=== PATIENT | male | born 1935 | race Caucasian/White ===

== ENCOUNTER → 2016-07-25 | Outpatient (CLI) | payer BC ==
[~2016-07-25] MED LIST: ASPI81TA28 PO; CHOL2000 PO; CZR50 PO; DOCU100C31 PO; DUTA0.5C PO; FLNIN/ NAE; FRRS300 PO; GLIM2TAB2 PO; ISOS60TA25 PO; MULT-351 PO; NADO80TA PO; NITR0.4S76 SL; NTRAR SL; RANO500T PO; SENNTAB23 PO; SIMV80TA2 PO; URX/10 PO; ZCR80 PO
[2016-07-25 08:38] LABS: URINE APPEARANCE CLEAR (CLEAR); URINE BILIRUBIN NEG (NEG); URINE COLOR YELLOW; URINE EPITHELIAL CELL AUTO >30 /lpf (0-5); URINE NITRITE NEG (NEG); URINE SPECIFIC GRAVITY 1.017 (1.000-1.030); UROBILINOGEN NEG (NEG)
[2016-07-25 08:42] LABS: MANUAL MICROSCOPIC REQUIRED? NO; REVIEW REQ? YES
[2016-07-25 08:50] LABS: URINE PROTIEN/CREAT RATIO 0.5 (0-0.2); URINE TOTAL PROTEIN 71.9 mg/dl (0-11.9)
[2016-07-25 08:56] LABS: BLOOD UREA NITROGEN 32 mg/dl (7-18); BUN/CREATININE RATIO 15.2 (10-20); CALCIUM 9.1 mg/dl (8.5-10.1); CARBON DIOXIDE 25 mmol/L (21-32); CHLORIDE 108 mmol/L (98-107); GLUCOSE 147 mg/dl (70-99); POTASSIUM 4.4 mmol/L (3.5-5.1); SODIUM 142 mmol/L (136-145)
[2016-07-25 09:01] LABS: FERRITIN 287.3 ng/ml (8.0-388.0); PHOSPHORUS 2.9 mg/dl (2.5-4.9); TOTAL IRON BINDING CAPACITY 211 mcg/dl (250-450)
[2016-07-25 10:39] LABS: URINE PATH CASTS 0-3 GRANULAR CASTS /lpf (0)
== END | disposition home or self-care (01) ==
LOC: C.LABSPEC 12:35
PROVIDERS: ATTEND Internal Medicine Nephrology
DX: N18.3 Chronic kidney disease, stage 3 (moderate) (principal); D64.9 Anemia, unspecified; D63.1 Anemia in chronic kidney disease; N18.9 Chronic kidney disease, unspecified

== ENCOUNTER → 2016-08-23 | Outpatient (CLI) | payer BC ==
[2016-08-23 10:00] LABS: BLOOD UREA NITROGEN 38 mg/dl (7-18); BUN/CREATININE RATIO 17.5 (10-20); CALCIUM 8.8 mg/dl (8.5-10.1); CARBON DIOXIDE 26 mmol/L (21-32); CHLORIDE 107 mmol/L (98-107); GLUCOSE 213 mg/dl (70-99); POTASSIUM 4.2 mmol/L (3.5-5.1); SODIUM 141 mmol/L (136-145)
== END | disposition home or self-care (01) ==
LOC: C.LAB 09:10
PROVIDERS: ATTEND Internal Medicine Nephrology
DX: N17.9 Acute kidney failure, unspecified (principal)

== ENCOUNTER → 2016-10-17 | Outpatient (CLI) | payer BC ==
[2016-10-17 09:29] LABS: URINE PROTIEN/CREAT RATIO 0.4 (0-0.2); URINE TOTAL PROTEIN 58.9 mg/dl (0-11.9)
[2016-10-17 09:33] LABS: MANUAL MICROSCOPIC REQUIRED? NO; REVIEW REQ? YES; URINE APPEARANCE CLEAR (CLEAR); URINE BILIRUBIN NEG (NEG); URINE COLOR DK YELLOW; URINE NITRITE NEG (NEG); URINE SPECIFIC GRAVITY 1.021 (1.000-1.030); UROBILINOGEN NEG (NEG)
[2016-10-17 09:53] LABS: URINE EPITHELIAL CELL AUTO 0-5 /lpf (0-5)
[2016-10-17 09:54] LABS: URINE PATH CASTS 0-3 GRANULAR CASTS /lpf (0)
== END | disposition home or self-care (01) ==
LOC: C.LAB 12:17
PROVIDERS: ATTEND Internal Medicine Nephrology
DX: N18.3 Chronic kidney disease, stage 3 (moderate) (principal); D63.1 Anemia in chronic kidney disease

== ENCOUNTER → 2016-10-27 | Outpatient (CLI) | payer BC ==
[~2016-10-27] MED LIST changes: +FEXO1TAB49 PO; +NITR0.1S SL; -NITR0.4S76 SL
--- NOTE | 2016-10-27 13:40 | DIAGNOSTIC IMAGING REPORT ---
BILATERAL LOWER EXTREMITY VENOUS DOPPLER CLINICAL HISTORY: Feet discoloration. Nonhealing wound. COMPARISON STUDY: Bilateral lower extremity venous Doppler February 28, 2015. TECHNIQUE: Sonography of the deep venous system of the bilateral lower extremities was performed. Compression and augmentation were evaluated. FINDINGS: The bilateral common femoral, superficial femoral and popliteal veins were compressible. Augmentation was normal. Flow was shown within the deep calf vessels. IMPRESSION: No evidence of deep venous thrombus within the bilateral lower extremities. Electronically signed by: David Wright M.D. 10/27/2016 1:37 PM Dictated Date/Time: 10/27/2016 1:37 PM
--- NOTE | 2016-10-27 14:17 | DIAGNOSTIC IMAGING REPORT ---
BILATERAL LOWER EXTREMITY ARTERIAL DOPPLER ULTRASOUND CLINICAL HISTORY: Type 2 diabetes. Discoloration of feet. COMPARISON STUDY: No previous studies for comparison. TECHNIQUE: Bilateral ankle to brachial indices were obtained. Grayscale and color and duplex Doppler sonography of the arterial systems of each lower extremity was performed. FINDINGS: The right right ankle to brachial index measured 1.43 when using posterior tibial artery and 1.46 when using the dorsalis pedis. The left ankle to brachial index measured 1.13 when using posterior tibial artery and 1.27 when using the dorsalis pedis. These are likely artificially elevated due to vessel calcification and lower extremity edema. This exam is compromised by suboptimal penetration due to lower extremity edema. No elevated velocities were identified within the right lower extremity. There is reversal flow within the right anterior tibial artery. There was biphasic and triphasic flow throughout the right lower extremity. There was triphasic flow within the left common femoral and superficial femoral arteries. An elevated peak systolic velocity of 159 cm/s was noted within the mid left superficial femoral artery. No flow is identified within the mid aspect of the left anterior tibial artery. There is reversal flow within the distal left anterior tibial artery. There was monophasic flow within the left dorsalis previous, peroneal and posterior tibial arteries. IMPRESSION: 1. Moderate atherosclerotic plaque within each lower extremity. 2. Normal to elevated ankle to brachial indices. These are likely artificially elevated due to vessel calcification and lower extremity edema. 3. Possible hemodynamically significant stenosis within the mid left superficial femoral artery. 4. Suspected occlusion of the mid aspects of the bilateral anterior tibial arteries. Otherwise, patent vessels within each lower extremity. Electronically signed by: David Wright M.D. 10/27/2016 2:15 PM Dictated Date/Time: 10/27/2016 2:11 PM
--- NOTE | 2016-11-27 11:25 | CODING QUERY MEDICAL NECESSITY ---
SUPPORTING DIAGNOSIS NEEDED Ben GUEVARA, A supporting diagnosis is required for the test/procedure performed on this patient in order for us to be reimbursed by the patient's insurance. Please provide a supporting diagnosis for the following test/procedure listed below next to the test name along with your signature. *If there is no additional diagnosis for this patient that would support the following test/procedure please document that below next to the test/procedure. Test(s)/Procedure(s) that require a supporting diagnosis: * ([id number]) VENOUS DOPPLER LOWER EXT BILAT DIAGNOSIS: DATE OF SERVICE: 10/27/16 Provider Signature: Date: Thank you Sammy Barrera [facility] Information Management Once completed, please kindly fax back to [phone] For questions please call [phone]
== END | disposition home or self-care (01) ==
LOC: C.ULTR 11:33
PROVIDERS: ATTEND Nurse Practitioner
DX: E11.9 Type 2 diabetes mellitus without complications (principal); L81.9 Disorder of pigmentation, unspecified; I70.203 Unspecified atherosclerosis of native arteries of extremities, bilateral legs; T14.8 Other injury of unspecified body region; X58.XXXA Exposure to other specified factors, initial encounter

== ENCOUNTER → 2016-11-16 | Outpatient (CLI) | payer BC ==
--- NOTE | 2016-11-16 14:54 | DIAGNOSTIC IMAGING REPORT ---
TWO VIEW CHEST CLINICAL HISTORY: Cough. FINDINGS: PA and lateral chest radiographs are compared to study dated 03/04/2015. The patient is status post midline sternotomy. The heart is enlarged and there is atherosclerotic calcification of the thoracic aorta. The pulmonary vasculature is noncongested. Emphysema and chronic interstitial thickening are similar to previous. Patchy airspace opacities are identified in the left mid to lower lung. No pleural effusion or pneumothorax is seen. The skeletal structures are osteopenic. 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 IMPRESSION: 1. Cardiomegaly and emphysema. 2. There are patchy airspace opacities in the left mid to lower lung. Correlate clinically for evidence of an infectious/inflammatory pneumonitis. Radiographic follow-up to resolution is recommended. Electronically signed by: Randy Manley M.D. 11/16/2016 2:53 PM Dictated Date/Time: 11/16/2016 2:51 PM
== END | disposition home or self-care (01) ==
LOC: C.RADPV 14:33
PROVIDERS: ATTEND Nurse Practitioner
DX: R05 Cough (principal); I51.7 Cardiomegaly; J43.9 Emphysema, unspecified; R91.8 Other nonspecific abnormal finding of lung field

== ENCOUNTER → 2016-11-17 | Outpatient (CLI) | payer BC ==
[2016-11-17 13:01] LABS: ESTIMATED AVERAGE GLUCOSE 108 mg/dl; HA1C FLAG Normal (Normal)
== END | disposition home or self-care (01) ==
LOC: C.LABPVFM 10:40
PROVIDERS: ATTEND Nurse Practitioner
DX: E11.9 Type 2 diabetes mellitus without complications (principal)

== ENCOUNTER → 2016-11-22 | Outpatient (CLI) | payer BC ==
--- NOTE | 2016-11-22 11:34 | DIAGNOSTIC IMAGING REPORT ---
CT OF THE CHEST WITHOUT IV CONTRAST CLINICAL HISTORY: Persistent cough COMPARISON STUDY: Chest x-ray dated 11/16/2016 CT DOSE: 394.42 mGycm TECHNIQUE: CT of the thorax was performed from the thoracic inlet to the lung bases. Images are reviewed in the axial, sagittal, and coronal planes. IV contrast was not administered for this examination. FINDINGS: Thyroid: There is 7 mm right lobe thyroid nodule Thoracic aorta: The thoracic aorta is normal in course and caliber, noting standard 3 vessel arch anatomy. Heart: There are coronary artery calcifications present. Lungs and pleural spaces: There is subpleural interstitial thickening/edema. There are bilateral mixed interstitial and groundglass opacities within both upper lobes. There is a 4.2 solid left upper lobe pulmonary nodule as visualized in image #127/296. There is an 8 x 5 mm solid nodule along the left major fissure as visualized in image #164/296. There is a 3 mm right middle lobe perifissural solid nodule as visualized in image #168/296. There is a 3 mm solid right apical pulmonary nodule as visualized in image #41/296. There are few scattered calcified granulomas present. Mediastinum: There is are mildly prominent mediastinal lymph nodes the largest of which is a right paratracheal lymph node measuring 15 x 10 mm. Evette: There is no evidence of pathologic hilar adenopathy given the limitations of a noncontrast study. Axilla: Clear. Upper abdomen: Partially visualized upper abdominal viscera is within normal limits. Skeletal structures: There is ankylosis of the dorsal spine. IMPRESSION: 1. Scattered bilateral solid subcentimeter pulmonary nodules. An optional 12 month follow-up is recommended. 2. Borderline enlarged mediastinal lymph nodes 3. Subpleural interstitial thickening/edema. Mixed interstitial and groundglass opacities within both upper lobes. It is unclear if these findings are acute or chronic. A three-month follow-up CT scan is recommended 4. Ankylosis of the dorsal spine. Please refer to below summary of Fleischner criteria recommendations for follow-up of incidental CT nodules (Riddhi Pleitez, Guidelines for management of small pulmonary nodules detected on CT scans: A statement from the Fleischner Society, Radiology 237: [phone].) SOLID NODULES Solitary nodule size: <6 mm * low risk patients: no follow-up needed * high risk patients: optional CT at 12 months Solitary nodule size: 6-8 mm * low risk patients: follow-up at 6-12 months, then consider further follow-up at 18-24 months * high risk patients: initial follow-up CT at 6-12 months and then at 18-24 months if no change Solitary nodule size: >8 mm * either low or high risk patients - consider follow-up CT at 3 months, and/or CT-PET, and/or biopsy Multiple nodules size: <6 mm * low risk patients: no routine follow-up * high risk patients: optional CT at 12 months Multiple nodules size: 6-8 mm * low risk patients: follow-up at 3-6 months, then consider further follow-up at 18-24 months * high risk patients: follow-up at 3-6 months, then at 18-24 months if no change Multiple nodules size: >8 mm * low risk patients: follow-up at 3-6 months, then consider further follow-up at 18-24 months * high risk patients: follow-up at 3-6 months, then at 18-24 months if no change Note: newly detected indeterminate nodule in persons 35 years of age or older. * low risk patients: minimal or absent history of smoking and/or other known risk factors * high risk patients: history of smoking or of other known risk factors (e.g. first degree relative with lung cancer, or exposure to asbestos, radon, uranium) * if a nodule up to 8 mm is partly solid or is ground glass further follow-up is required after 24 months to exclude possible slow growing adenocarcinoma (MAURIZIO) SUBSOLID NODULES Solitary pure ground-glass nodule * nodule size <6 mm - no CT follow-up required * nodule size >=6 mm - follow-up CT at 6-12 months, then every 2 years until 5 years Solitary part-solid nodule * nodule size <6 mm - no CT follow-up required * nodule size >=6 mm - follow-up CT at 3-6 months. If unchanged, and solid component remains <6 mm, then annual follow-up for 5 years Multiple subsolid nodules * nodule size <6 mm - follow-up CT at 3-6 months, consider further follow-up at 2 and 4 years if stable * nodule size >=6 mm - follow-up CT at 3-6 months, subsequent management based on the most suspicious nodule(s) Electronically signed by: Darnell Dewitt M.D. 11/22/2016 11:33 AM Dictated Date/Time: 11/22/2016 11:21 AM
== END | disposition home or self-care (01) ==
LOC: C.CTS 11:06
PROVIDERS: ATTEND Nurse Practitioner
DX: R05 Cough (principal); R93.8 Abnormal findings on diagnostic imaging of other specified body structures

== ENCOUNTER → 2016-12-05 | Outpatient (CLI) | payer BC | END | disposition home or self-care (01) | LOC: C.LABPVFM 08:56 | PROVIDERS: ATTEND Nurse Practitioner | DX: R05 Cough (principal); R93.8 Abnormal findings on diagnostic imaging of other specified body structures ==

== ENCOUNTER → 2016-12-14 | Outpatient (CLI) | payer BC | END | disposition home or self-care (01) | LOC: C.LABPVFM 14:44 | PROVIDERS: ATTEND Internal Medicine Infectious Disease | DX: R91.8 Other nonspecific abnormal finding of lung field (principal) ==

== ENCOUNTER 2016-12-24 19:08 | Emergency (ER) | payer BC ==
[~2016-12-24 19:08] MED LIST changes: -ASPI81TA28 PO; -CHOL2000 PO; -DOCU100C31 PO; -FEXO1TAB49 PO; -FLNIN/ NAE; -NITR0.1S SL; -ZCR80 PO
[2016-12-24 19:11] VITALS: Ht 190.5 cm
--- NOTE | 2016-12-24 20:13 | DIAGNOSTIC IMAGING REPORT ---
LEFT KNEE 1 OR 2 VIEWS ROUTINE, LEFT TIBIA/FIBULA 2 VIEWS ROUTINE CLINICAL HISTORY: fall, pain COMPARISON STUDY: None. FINDINGS: Mild osteoarthritis within the left knee. No knee effusion. Surgical clips are seen along the medial axis of the knee and lower leg. No fractures within the visualized osseous structures. No dislocation. Diffuse soft tissue swelling within the left knee and lower leg. IMPRESSION: Diffuse soft tissue swelling. No fractures within the left knee or left lower leg. Electronically signed by: Jose Roberto Smith M.D. 12/24/2016 8:11 PM Dictated Date/Time: 12/24/2016 8:09 PM
[2016-12-24] MEDS ORDERED: ZCR80 PO (20:25)
[2016-12-24] MEDS ORDERED: ASPI81TA28 PO (20:25)
[2016-12-24] MEDS ORDERED: CHOL2000 PO (20:25)
[2016-12-24] MEDS ORDERED: NITR0.1S SL (20:25)
[2016-12-24] MEDS ORDERED: NADO80TA PO (20:25)
[2016-12-24] MEDS ORDERED: DOCU100C31 PO (20:25)
[2016-12-24] MEDS ORDERED: FLNIN/ NAE (20:25)
--- NOTE | 2016-12-24 21:14 | EMERGENCY ROOM VISIT NOTE ---
History Report prepared by Mahnaz: Marilee Bsutamante Under the Supervision of: Dr. Randy Holloway M.D. 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 The patient currently rates the pain as a 3/10 in severity. The patient states that he was getting into the passenger side of the car and the running board was wet from the rain causing it to be slippery and he twisted his leg. The patient denies falling. The patient's family state that they had a walking boot from a previous injury and he was wearing it today because he was unable to get his shoes on. The patient states that he tried heat on the leg but it did not improve his pain. He states that with ice the pain was better. The patient denies any knee pain on the left leg. The patient's states that the patient does not take any blood thinners but does take baby aspirin 3 times a day 3 days a week. The patient denies any other injuries or pain. Source of History: patient, spouse/significant other () Onset: 6 hours SEWER PIPE LAYER Position: leg (left) Symptom Intensity: 3/10 Timing: other (persistent) Modifying Factors (Relieving): ice Note: Patient denies any left knee pain. Review of Systems See HPI for pertinent positives & negatives. A total of 6 systems reviewed and were otherwise negative. Past Medical & Surgical Surgical Problems: (1) S/P quintuple vessel bypass Family History Patient reports no known family medical history. Social History Smoking Status: Never Smoker Alcohol Use: none Drug Use: none Marital Status: Housing Status: lives with significant other Occupation Status: retired Current/Historical Medications Scheduled Aspirin (Aspirin Ec), 81 MG PO 3XWK Cholecalciferol (Vitamin D3), 2,000 INTER.UNIT PO DAILY Docusate Sodium (Docusate Sodium), 200 MG PO BID Glimepiride (Glimepiride), 2 MG PO QAM Isosorbide Mononitrate Ext Rel (Imdur Ext Rel), 60 MG PO BID Nadolol (Corgard), 80 MG PO BID Simvastatin (Simvastatin), 80 MG PO HS Scheduled PRN Fluticasone Propionate (Fluticasone Propionate), 2 SPRAYS ALAYNA DAILY PRN for Allergy Symptoms Nitroglycerin (Nitroglycerin Lingual), 1 SPRAY SL UD PRN for Chest Pain Allergies Coded Allergies: Sulfamethoxazole w/Trimethoprim (Verified Allergy, Mild, HIVES, 06/21/15) Amoxicillin (Verified Allergy, Unknown, HIVES, 06/21/15) Iodine (Verified Allergy, Unknown, HIVES, 06/21/15) Physical Exam Vital Signs Date Time Temp Pulse Resp B/P (MAP) Pulse Ox O2 Delivery O2 Flow Rate FiO2 12/24/16 22:08 36.5 70 18 126/66 95 12/24/16 21:53 70 18 126/66 95 Room Air 12/24/16 19:11 36.5 70 18 126/64 95 Room Air Physical Exam GENERAL: Sitting on stretcher, no acute distress. NEURO: Awake, alert, oriented x3, moving all extremities. EXTREMITIES: Left leg edema when compared to the right. No cellulitis. There is mild contusion to the left leg from the knee to the ankle. No focal bony discomfort about the knee, ankle or foot. No evidence for neurovascular compromise. Tender to palpation over the left posterior calf. Achilles is intact. Medical Decision & Procedures ER Provider Diagnostic Interpretation: X-ray results as stated below per interpretation by me and the radiologist: LEFT KNEE 1 OR 2 VIEWS ROUTINE, LEFT TIBIA/FIBULA 2 VIEWS ROUTINE CLINICAL HISTORY: fall, pain COMPARISON STUDY: None. FINDINGS: Mild osteoarthritis within the left knee. No knee effusion. Surgical clips are seen along the medial axis of the knee and lower leg. No fractures within the visualized osseous structures. No dislocation. Diffuse soft tissue swelling within the left knee and lower leg. IMPRESSION: Diffuse soft tissue swelling. No fractures within the left knee or left lower leg. Electronically signed by: Jose Roberto Smith M.D. 12/24/2016 8:11 PM Dictated Date/Time: 12/24/2016 8:09 PM US results as stated below per my review and radiologist interpretation: LEFT LOWER EXTREMITY VENOUS DOPPLER HISTORY: left leg swelling COMPARISON STUDY: None. FINDINGS: There is normal compressibility, flow, and augmentation within the left lower extremity deep venous system. IMPRESSION: No DVT within the left lower extremity. Electronically signed by: Jose Roberto Smith M.D. 12/24/2016 9:15 PM Dictated Date/Time: 12/24/2016 9:15 PM ED Course 1914: The patient was evaluated in room A11B. A complete history and physical exam was performed. 2137: Reevaluated the patient. Discussed results and discharge instructions: He verbalized understanding and agreement. The nursing staff will find a walking boot for the patient prior to discharge. 2158: A walking boot was placed on the patient's left foot. The patient is ready for discharge. Medical Decision The patient is a 81 year old male who presents to the ED with complaints of left leg pain. Differential diagnoses considered include muscle tear, hematoma , DVT, fracture, and cellulitis. The patient presents with an injury to his left leg and calf. He does have some edema and some faint contusion forming. There was no cellulitis. No neurovascular compromise. No evidence for compartment syndrome. The bony areas of the knee, ankle and foot were nontender. His Achilles was intact. Films of the left knee and left tib-fib were done, no fractures were seen. Left leg ultrasound does not show DVT, no mention of any large hematoma. The patient likely has torn a muscle of his calf. This has led to some bleeding in the soft tissues, he is on aspirin. The patient was reassured by his findings. He was given a walking boot to help with discomfort. Ice, elevation, orthopedic follow up were suggested. Medication Reconciliation: I attest that I have personally reviewed the patient' s current medication list. Blood Pressure Screening: Patient was found to have normal blood pressure on screening and does not require follow-up. Impression Primary Impression: Leg pain, left Additional Impression: Muscle strain of left lower leg Scribe Attestation The scribe's documentation has been prepared under my direction and personally reviewed by me in its entirety. I confirm that the note above accurately reflects all work, treatment, procedures, and medical decision making performed by me. Departure Information Dispostion Home / Self-Care Referrals Deb Contreras C.R.N.P (PCP) Forms HOME CARE DOCUMENTATION FORM, IMPORTANT VISIT INFORMATION Patient Instructions My [facility] Additional Instructions wear the boot when walking try to limit your walking keep the leg elevated to help the swelling ice for 30 minutes at a time for the next few days tylenol for pain call orthopedics for an appt--call in the am tomorrow return for fever or if worsening Problem Qualifiers
[2016-12-24 22:08] VITALS: BP 126/66; PULSE 70; TEMP 36.5; O2SAT 95
[2017-05-01] MEDS ORDERED: FEXO1TAB49 PO (11:07)
== END 2016-12-24 22:09 | disposition home or self-care (01) ==
LOC: C.EDB 19:09 → C.EDA 22:09
DX: M79.605 Pain in left leg (principal); S86.902A Unspecified injury of unspecified muscle(s) and tendon(s) at lower leg level, left leg, initial encounter; X50.1XXA Overexertion from prolonged static or awkward postures, initial encounter; Y92.89 Other specified places as the place of occurrence of the external cause; Z79.82 Long term (current) use of aspirin; Z79.899 Other long term (current) drug therapy

== ENCOUNTER → 2016-12-26 | Outpatient (CLI) | payer BC ==
[~2016-12-26] MED LIST changes: +ASPI81TA28 PO; +CHOL2000 PO; -CZR50 PO; +DOCU100C31 PO; -DUTA0.5C PO; +FEXO1TAB49 PO; +FLNIN/ NAE; -FRRS300 PO; -MULT-351 PO; +NITR0.1S SL; -NTRAR SL; -RANO500T PO; -SENNTAB23 PO; -SIMV80TA2 PO; -URX/10 PO; +ZCR80 PO
[2017-01-01 14:19] LABS: ASPERGILLUS FUMIGATUS NEGATIVE (NEGATIVE); M. FAENI (S. RECTIVIRGULA) NEGATIVE (NEGATIVE); PIGEON SERUM NEGATIVE (NEGATIVE); SACCHAROMONOSPORA VIRIDIS AB NEGATIVE (NEGATIVE); THERMOACTINOMYCES CANDIDUS NEGATIVE (NEGATIVE); THERMOACTINOMYCES VULGARIS NEGATIVE (NEGATIVE)
== END | disposition home or self-care (01) ==
LOC: C.LAB 12:53
PROVIDERS: ATTEND Physician Assistant Medical
DX: R05 Cough (principal)

== ENCOUNTER → 2017-02-21 | Outpatient (CLI) | payer BC ==
[~2017-02-21] MED LIST changes: -NITR0.1S SL; +NITR0.4S76 SL
--- NOTE | 2017-02-21 12:28 | DIAGNOSTIC IMAGING REPORT ---
CT SCAN OF THE CHEST WITHOUT IV CONTRAST CLINICAL HISTORY: Follow-up pulmonary nodules. Follow-up abnormal CT scan. Chronic cough. COMPARISON STUDY: Chest CT dated 11/22/2016. Abdominal CT dated 02/07/2015. TECHNIQUE: CT scan of the thorax was performed from the thoracic inlet to the upper abdomen. Images are reviewed in the axial, sagittal, and coronal planes. IV contrast was not administered for this examination as per the referring clinician. A dose lowering technique was utilized adhering to the principles of ALARA. CT DOSE: 476.62 mGycm FINDINGS: Thyroid: Imaged portions of the thyroid gland are normal in size and attenuation. Thoracic aorta: There is atherosclerotic calcification of the thoracic aorta, which is normal in caliber and demonstrates standard 3-vessel arch anatomy. Heart: The patient is status post midline sternotomy. The heart is enlarged and without pericardial effusion. The coronary arteries are densely calcified. The main pulmonary arteries are markedly dilated suggesting pulmonary artery hypertension. Lungs and pleural spaces: There is subpleural reticulation seen within the mid to lower lungs. There are numerous foci of interlobar septal thickening with associated groundglass change. This is most confluence in the right upper lobe and at both lung bases (right greater than left). This has increased at the lung bases in the right upper lobe as compared to 11/22/2016. Findings in the left upper lobe have significantly improved from the prior study. There are numerous tiny calcified granulomas. A 3 mm pleural-based nodule at the right apex image #51 is unchanged. Nodular pleural thickening is again seen along the left major fissure. The trachea and central airways are clear. Mediastinum: Mildly enlarged mediastinal lymph nodes are similar to previous. A high right paratracheal node measures 1.2 cm in short axis as seen on image #58. Prominent subcarinal nodes measure up to 9 mm short axis as seen on image #154. Evette: Not well assessed without IV contrast. Axillae: There is no axillary lymphadenopathy. Upper abdomen: There is a small hiatal hernia. The spleen is enlarged measuring 14.2 cm in length small splenules are incidentally noted in the left upper quadrant. Skeletal structures: The skeletal structures are osteopenic. No lytic or blastic bony lesions are seen. Degenerative change is seen throughout the thoracic spine and there is evidence of DISH. A bone island is again seen in the left scapula. IMPRESSION: 1. There are foci of groundglass consolidative change with associated intralobular septal thickening. This suggest a "crazy paving" appearance and areas of involvement have waxed and waned as compared to the 11/22/2016 examination. This caries a broad differential. Considerations include (but are not limited to) chronic/atypical pneumonias, cryptogenic organizing pneumonia, alveolar sarcoidosis, lipoid pneumonia, eosinophilic pneumonia, vasculitis/hemorrhage, drug induced pneumonitis, and alveolar proteinosis. Clinical correlation will be essential. Pulmonology follow-up is recommended. 2. Cardiomegaly with evidence of pulmonary artery hypertension. 3. Mildly enlarged mediastinal lymph nodes are similar to previous. 4. Tiny pleural-based nodules and scattered calcified granulomas are similar to previous. 5. Additional findings as above. Electronically signed by: Randy Manley M.D. 02/21/2017 12:27 PM Dictated Date/Time: 02/21/2017 11:49 AM
== END | disposition home or self-care (01) ==
LOC: C.CTS 10:14
PROVIDERS: ATTEND Physician Assistant Medical
DX: R91.8 Other nonspecific abnormal finding of lung field (principal)

== ENCOUNTER → 2017-02-23 | Outpatient (CLI) | payer BC | END | disposition home or self-care (01) | LOC: C.LAB1850 10:20 | PROVIDERS: ATTEND Physician Assistant Medical | DX: J02.9 Acute pharyngitis, unspecified (principal) ==

== ENCOUNTER → 2017-04-03 | Outpatient (CLI) | payer BC ==
[2017-04-03 09:09] LABS: URINE APPEARANCE CLOUDY (CLEAR); URINE BILIRUBIN NEG (NEG); URINE COLOR DK YELLOW; URINE EPITHELIAL CELL AUTO >30 /lpf (0-5); URINE NITRITE NEG (NEG); URINE SPECIFIC GRAVITY 1.024 (1.000-1.030); UROBILINOGEN NEG (NEG)
[2017-04-03 09:12] LABS: MANUAL MICROSCOPIC REQUIRED? NO; REVIEW REQ? YES
[2017-04-03 09:18] LABS: URINE PROTIEN/CREAT RATIO 0.5 (0-0.2)
[2017-04-03 09:31] LABS: BLOOD UREA NITROGEN 39 mg/dl (7-18); BUN/CREATININE RATIO 18.6 (10-20); CARBON DIOXIDE 25 mmol/L (21-32); CHLORIDE 107 mmol/L (98-107); GLUCOSE 194 mg/dl (70-99); PHOSPHORUS 3.3 mg/dl (2.5-4.9); POTASSIUM 4.2 mmol/L (3.5-5.1); SODIUM 140 mmol/L (136-145)
== END | disposition home or self-care (01) ==
LOC: C.LAB 11:13
PROVIDERS: ATTEND Internal Medicine Nephrology
DX: N18.3 Chronic kidney disease, stage 3 (moderate) (principal); D63.1 Anemia in chronic kidney disease

== ENCOUNTER → 2017-06-28 | Outpatient (CLI) | payer BC ==
[~2017-06-28] MED LIST changes: +NITR0.1S SL; -NITR0.4S76 SL
[2017-06-28 12:38] LABS: HEMATOCRIT 28.6 % (42-52); MEAN CELL VOLUME 94.7 fL (80-100); MEAN CORPUSCULAR HEMOGLOBIN 26.2 pg (25-34); MEAN CORPUSCULAR HGB CONC 27.6 g/dl (32-36); MEAN PLATELET VOLUME 11.2 fL (7.4-10.4); PLATELET COUNT 225 K/uL (130-400); RED BLOOD COUNT 3.02 M/uL (4.7-6.1); WHITE BLOOD COUNT 3.04 K/uL (4.8-10.8)
[2017-06-28 13:10] LABS: BASO ABS # 0.03 K/uL (0-0.2); BASOPHIL % 0.9 % (0-2); EOSINOPHIL % 3.5 %; LYMPH ABS # 0.77 K/uL (1.2-3.4); LYMPHOCYTE % 25.4 %; NEUTROPHILS % 53.5 %
[2017-06-28 13:12] LABS: ANISOCYTOSIS PRESENT; COMPLETE YES; POLYCHROMASIA 2+; SPHEROCYTE OCCASIONAL
== END | disposition home or self-care (01) ==
LOC: C.LABPVFM 10:22
PROVIDERS: ATTEND Nurse Practitioner
DX: D64.9 Anemia, unspecified (principal)

== ENCOUNTER → 2017-10-08 | Outpatient (CLI) | payer BC ==
--- NOTE | 2017-10-08 09:52 | DIAGNOSTIC IMAGING REPORT ---
CHEST 2 VIEWS ROUTINE CLINICAL HISTORY: 82 years-old Male presenting with cough for one year, cold symptoms recently. TECHNIQUE: PA and lateral views of the chest were obtained. COMPARISON: 11/16/2016. FINDINGS: Atherosclerosis of aortic arch. Cardiac silhouette mildly enlarged. Median sternotomy wires and mediastinal surgical clips again noted. Mildly prominent lung markings diffusely without focal opacity. No pleural effusion or pneumothorax. Degenerative changes of the thoracic spine. Upper abdomen normal. IMPRESSION: 1. Mild cardiomegaly. No acute cardiopulmonary disease. Electronically signed by: Roland Pederson M.D. 10/08/2017 9:50 AM Dictated Date/Time: 10/08/2017 9:49 AM
--- NOTE | 2017-10-18 10:46 | CODING QUERY NO DIAGNOSIS ---
TREATMENT RENDERED WITHOUT A DIAGNOSIS To promote full compliance with coding requirements relating to patient care, physician participation is requested in all cases of magazine editor uncertainty. Please assist us with providing a diagnosis/symptom for the test(s) below: A diagnosis/symptom was not documented on your Order. A valid diagnosis/symptom is required to bill all insurances. Please remember that we are unable to code a diagnosis of rule out, probable, possible, questionable, or suspected. Tests that require a diagnosis: DOS: 10/08/17 * CHEST 2 VIEWS ROUTINE DIAGNOSIS: Provider Signature: Date: Thank you Gema Whelan [employer] Information Management Once completed, please kindly fax back to [phone] For questions please call [phone]
== END | disposition home or self-care (01) ==
LOC: C.RAD 09:19
PROVIDERS: ATTEND Nurse Practitioner Family
DX: R05 Cough (principal)

== ENCOUNTER → 2017-11-13 | Outpatient (CLI) | payer BC ==
[2017-11-13 08:42] LABS: CREATININE RANDOM URINE 87.3 mg/dl
[2017-11-13 09:08] LABS: HEMOGLOBIN A1C 5.2 % (4.5-5.6)
== END | disposition home or self-care (01) ==
LOC: C.LABSPEC 11:03
PROVIDERS: ATTEND Nurse Practitioner
DX: N18.3 Chronic kidney disease, stage 3 (moderate) (principal); E11.9 Type 2 diabetes mellitus without complications

== ENCOUNTER 2017-12-12 15:47 | Emergency (ER) | payer BC ==
[~2017-12-12] VITALS: Ht 167.6 cm; Wt 91.0 kg
[~2017-12-12 15:47] MED LIST changes: +CALC0.2510 PO; -FEXO1TAB49 PO; +MULT-506 PO; +PROC10TA PO
[2017-12-12 15:51] VITALS: TEMP 36.9; Ht 167.6 cm; Wt 91.0 kg
[2017-12-12] MEDS ORDERED: GELATIN SPONGE 12-7MM ONE (16:00)
--- NOTE | 2017-12-12 16:52 | EMERGENCY ROOM VISIT NOTE ---
History First contact with patient: 15:50 Chief Complaint: BLEEDING Stated Complaint: BLEEDING FROM CHEMO SHOT AREA Nursing Triage Summary: patient to ED via BLS states he recieved a chemo shot today at 1130 and has been bleeding since then, has changed dressing 3 times. EMS also changed dressing. Patient states he takes aspirin. Injection site left lower abdomen slowly oozing blood. Dressing intact with bloody drainage. History of Present Illness The patient is a 82 year old male who presents to the Emergency Room via ambulance with complaints of "bleeding from chemo shot area". The patient presents to us today via BLS status post a chemotherapy injection he received today around 10:30 AM here at the [facility]. He notes he follows with Dr. Dutton. He has had bleeding in the past but never like this. He is saturated 3 dressings total. He notes that he already has low blood count and has had transfusions in the recent past. He takes 3 baby aspirin per week and no other blood thinners. He denies any abdominal pain, chest pain, shortness of breath, fevers or chills. Tetanus is up-to-date. He points to the left lower quadrant as the region/site of the bleed. Review of Systems A complete 10-point Review of Systems was discussed with the patient, with pertinent positives and negatives listed in the History of Present Illness. All remaining Review of Systems questions can be considered negative unless otherwise specified. Past Medical/Surgical History Surgical Problems: (1) S/P quintuple vessel bypass Family History Patient reports no known family medical history. Social History Smoking Status: Never Smoker Alcohol Use: none Drug Use: none Marital Status: Housing Status: lives with significant other Occupation Status: retired Current/Historical Medications Scheduled Aspirin (Aspirin Ec), 81 MG PO 3XWK Calcitriol (Rocaltrol Cap), 0.25 MCG PO 3XWK Cholecalciferol (Vitamin D3), 2,000 INTER.UNIT PO DAILY Docusate Sodium (Docusate Sodium), 200 MG PO BID Glimepiride (Glimepiride), 2 MG PO QAM Isosorbide Mononitrate Ext Rel (Imdur Ext Rel), 210 MG PO UD Multivitamin (Multivitamin), 1 TAB PO DAILY Nadolol (Corgard), 80 MG PO BID Simvastatin (Simvastatin), 80 MG PO HS Scheduled PRN Fluticasone Propionate (Fluticasone Propionate), 2 SPRAYS ALAYNA DAILY PRN for Allergy Symptoms Nitroglycerin (Nitroglycerin Lingual), 1 SPRAY SL UD PRN for Chest Pain Prochlorperazine Maleate (Compazine), 10 MG PO Q6H PRN for Nausea Physical Exam Vital Signs Date Time Temp Pulse Resp B/P (MAP) Pulse Ox O2 Delivery O2 Flow Rate FiO2 12/12/17 17:35 72 20 136/72 97 12/12/17 15:51 36.9 72 17 121/71 97 Room Air Physical Exam VITAL SIGNS - Vital signs and nursing notes were reviewed. Stable. GENERAL -82-year-old male appearing his stated age who is in no acute distress. Communicates well with provider and answers questions appropriately. SKIN - Without rashes. There is a small punctate region that is oozing blood in the left lower quadrant on the skin. No evidence of deep involvement. HEAD - NC/AT. EYES - Sclera anicteric. EARS - No deformities of external structures noted on gross examination bilaterally. NOSE - Midline and without cyanosis. No epistaxis or purulent drainage noted. MOUTH/OROPHARYNX - Without perioral cyanosis. ABDOMEN - Abdominal contour normal without pulsations or visible masses. Small trickle of blood from the left lower quadrant skin. No tenderness, palpable masses, hepatosplenomegaly, or ascites noted. EXTREMITIES - No clubbing or peripheral cyanosis. No pretibial edema present. +5 /5 strength noted in UE/LE bilaterally. NEUROLOGIC - Cranial nerves II through XII grossly intact. Sensory intact to light touch throughout. Patellar reflexes +2/4. PSYCH - A&O, and cooperates fully with examiner. Pt is very pleasant and interacts well with examiner. Medical Decision & Procedures Laboratory Results 12/12/17 16:25 Red Blood Count 3.27, Mean Corpuscular Volume 93.9, Mean Corpuscular Hemoglobin 27.2, Mean Corpuscular Hemoglobin Concent 29.0, Mean Platelet Volume 10.6 12/12/17 16:25 Test 12/12/17 16:25 White Blood Count 20.41 K/uL (4.8-10.8) Red Blood Count 3.27 M/uL (4.7-6.1) Hemoglobin 8.9 g/dL (14.0-18.0) Hematocrit 30.7 % (42-52) Mean Corpuscular Volume 93.9 fL (80-100) Mean Corpuscular Hemoglobin 27.2 pg (25-34) Mean Corpuscular Hemoglobin Concent 29.0 g/dl (32-36) Platelet Count 75 K/uL (130-400) Mean Platelet Volume 10.6 fL (7.4-10.4) RDW Standard Deviation 66.2 fL (36.4-46.3) RDW Coefficient of Variation 19.5 % (11.5-14.5) Nucleated RBC Absolute Count (auto) 0.76 K/uL (0-0) Neutrophils % (Manual) 40.3 % Lymphocytes % (Manual) 5.3 % Monocytes % (Manual) 14.0 % Eosinophils % (Manual) 5.3 % Myelocytes % 21.1 % Blast Cells % 14.0 % Nucleated Red Blood Cells % 3.7 % Neutrophils # (Manual) 8.23 K/uL (1.4-6.5) Total Absolute Neutrophils 8.23 K/uL (1.4-6.5) Lymphocytes # (Manual) 1.08 K/uL (1.2-3.4) Total Absolute Lymphocytes 1.08 K/uL (1.2-3.4) Monocytes # (Manual) 2.86 K/uL (0.11-0.59) Eosinophils # (Manual) 1.08 K/uL (0-0.5) Myelocytes # 4.31 K/uL (0-0) Hypogranular Neutrophils 1+ Blast Cells # 2.86 K/uL (0-0) Dohle Bodies 1+ Polychromasia 1+ Hypochromasia PRESENT Prothrombin Time 12.3 SECONDS (9.0-12.0) Prothromb Time International Ratio 1.2 (0.9-1.1) Activated Partial Thromboplast Time 30.9 SECONDS (21.0-31.0) Partial Thromboplastin Ratio 1.2 Anion Gap 5.0 mmol/L (3-11) Est Creatinine Clear Calc Drug Dose 22.2 ml/min Estimated GFR () 23.6 Estimated GFR (Non- 20.4 BUN/Creatinine Ratio 15.8 (10-20) Calcium Level 8.5 mg/dl (8.5-10.1) Medications Administered Medications (Trade) Dose Ordered Sig/[place] Route Start Time Stop Time Status Last Admin Dose Admin Gelatin (Surgifoam Sponge 12-7MM (SMALL)) 1 ea STK-MED ONCE .ROUTE 12/12/17 16:00 12/12/17 16:01 DC 12/12/17 16:00 1 EA Medical Decision Patient was seen and evaluated as above in room B7. Review was performed of nursing notes and vital signs. After obtaining a thorough history and physical examination the above work up was performed. He presents to us today with a persistently bleeding injection site in the left lower quadrant. No evidence of concerning trauma. The abdomen is soft, nontender. No evidence of peritoneal irritation. I did elect to cleanse the wound with normal saline and gauze. I then placed Gelfoam on the region and then secured an Rubens wrap pressure dressing. He was placed in a supine position. He is reevaluated and the bleeding did not persist. I then change this to a smaller bandaged and secured in place. Bleeding did not persist anymore. I did elect to obtain baseline labs as the patient notes significant anemia at baseline and they are concerned about how much blood he may have lost today. CBC reveals leukocytosis of 20.41. I suspect this is from chronic underlying medical condition and his chemotherapy. Hemoglobin is 8.9. This is only decreased by 0.1 compared to previous. Coags are similar to previous. His creatinine is elevated compared to previous at 2.8 but only slightly. BUN is 44 now. I discussed with the patient about how important is that he follows with his top frame maker given this value. He notes that they did discuss potential chemotherapy but he at this time does not want to do that. Fortunately, there is no electrolyte abnormality. He is to call the top frame maker tomorrow. He also notes a follow-up to get his subsequent chemotherapy injection. I did discuss the case with the patient's doctor, Dr. Dutton. We discussed the case, and I informed him that I did place the dressing and there is no continue bleed. He is to keep his appointment for tomorrow. They are to return with worsening or persistent bleeding. The patient was educated upon management, had questions answered prior to discharge, and was discharged home in good condition. Case was discussed with the attending physician. I attest that I have personally reviewed the patient medication list. I attest that I have reviewed the patient's blood pressure and it was found to be slightly elevated likely secondary to situation. In the evaluation and treatment of this patient the following differential diagnoses were entertained: Persistent bleed, trauma, peritoneal irritation, among others per Impression Primary Impression: Hemorrhage at injection site Additional Impression: Anemia Departure Information Dispostion Home / Self-Care Condition GOOD Referrals Deb Contreras C.R.N.P (PCP) Patient Instructions [facility] Additional Instructions He was seen in the emergency department for bleeding at the site where he received the injection At this time I recommend keeping the bandage in place until tomorrow when you receive your next injections. Gelfoam was applied to this, therefore a small amount of water should be applied to the piece of foam before it is removed to help soften it. if it is removed when it is dry it will likely cause rebleeding. His creatinine today is 2.8. Hemoglobin is 8.9. Please call his top frame maker first thing tomorrow to discuss his kidney function elevation. Problem Qualifiers
[2017-12-12 16:56] LABS: INR 1.2 (0.9-1.1); PTT PATIENT 30.9 SECONDS (21.0-31.0)
[2017-12-12 17:03] LABS: CALCIUM 8.5 mg/dl (8.5-10.1); CREATININE 2.8 mg/dl (0.60-1.40); POTASSIUM 4.5 mmol/L (3.5-5.1)
[2017-12-12 17:15] LABS: HEMATOCRIT 30.7 % (42-52); HEMOGLOBIN 8.9 g/dL (14.0-18.0); MEAN CELL VOLUME 93.9 fL (80-100); MEAN CORPUSCULAR HEMOGLOBIN 27.2 pg (25-34); MEAN PLATELET VOLUME 10.6 fL (7.4-10.4); NUCLEATED RED BLOOD CELL ABS 0.76 K/uL (0-0); PLATELET COUNT 75 K/uL (130-400); RED CELL DISTRIBUTION WIDTH CV 19.5 % (11.5-14.5); RED CELL DISTRIBUTION WIDTH SD 66.2 fL (36.4-46.3); WHITE BLOOD COUNT 20.41 K/uL (4.8-10.8)
[2017-12-12 17:35] VITALS: BP 136/72; PULSE 72; O2SAT 97
--- NOTE | 2017-12-12 17:49 | EMERGENCY ROOM VISIT NOTE ---
ED Visit Note First contact with patient: 15:50 I have personally seen and evaluated the patient with the physician assistant accounting manager. I agree with the diagnostic/management decisions and have personally been involved in these decisions and agree with the diagnosis.
== END 2017-12-12 18:45 | disposition home or self-care (01) ==
LOC: EDBD 15:47 → C.EDB 15:48
DX: T80.89XA Other complications following infusion, transfusion and therapeutic injection, initial encounter (principal); Y84.8 Other medical procedures as the cause of abnormal reaction of the patient, or of later complication, without mention of misadventure at the time of the procedure; D64.9 Anemia, unspecified; Z79.82 Long term (current) use of aspirin; Z79.899 Other long term (current) drug therapy